=== PATIENT | female | born 1955 | race Two or more races ===

== ENCOUNTER 2021-04-27 12:20 | Outpatient (CLI) | payer OTHER | END 2021-04-27 12:25 | disposition home or self-care (01) | LOC: SONOGRAMA 12:20 | PROVIDERS: ATTEND Internal Medicine Cardiovascular Disease | DX: M25.511 Pain in right shoulder (principal) ==

== ENCOUNTER 2021-06-21 15:18 | Emergency (ER) | payer OTHER ==
[~2021-06-21] VITALS: Ht 154.9 cm; Wt 68.0 kg
[2021-06-21] MEDS ORDERED: GLUMETZA1000 MG (15:29)
== END 2021-06-21 21:29 | disposition home or self-care (01) ==
LOC: ER 15:18
DX: R10.31 Right lower quadrant pain (principal)

== ENCOUNTER 2022-04-26 08:17 | Emergency (ER) | payer OTHER ==
[~2022-04-26] VITALS: Ht 152.4 cm; Wt 66.7 kg
[~2022-04-26 08:17] MED LIST: GLUMETZA1000 MG
== END 2022-04-26 10:44 | disposition home or self-care (01) ==
LOC: ER 08:17
DX: B02.9 Zoster without complications (principal); E11.9 Type 2 diabetes mellitus without complications; Z79.84 Long term (current) use of oral hypoglycemic drugs; Z88.6 Allergy status to analgesic agent

== ENCOUNTER → 2022-10-03 | Outpatient (CLI) | payer OTHER | END | disposition home or self-care (01) | LOC: MAMO-SONO 08:24 | PROVIDERS: ATTEND Internal Medicine Cardiovascular Disease | DX: N63.11 Unspecified lump in the right breast, upper outer quadrant (principal) ==

== ENCOUNTER → 2022-10-10 | Outpatient (CLI) | payer OTHER | END | disposition home or self-care (01) | LOC: NUCLEAR 11:54 | PROVIDERS: ATTEND Internal Medicine Cardiovascular Disease | DX: M81.0 Age-related osteoporosis without current pathological fracture (principal); E55.9 Vitamin D deficiency, unspecified ==

== ENCOUNTER 2023-03-06 09:20 | Outpatient (CLI) | payer OTHER | END 2023-03-06 09:23 | disposition home or self-care (01) | LOC: RAD 09:20 | PROVIDERS: ATTEND Internal Medicine Cardiovascular Disease | DX: M46.48 Discitis, unspecified, sacral and sacrococcygeal region (principal) ==

== ENCOUNTER 2023-03-09 09:33 | Outpatient (CLI) | payer OTHER | END 2023-03-09 09:44 | disposition home or self-care (01) | LOC: SONOGRAMA 09:33 | PROVIDERS: ATTEND Internal Medicine Cardiovascular Disease | DX: R10.9 Unspecified abdominal pain (principal); K72.00 Acute and subacute hepatic failure without coma ==

== ENCOUNTER 2023-03-26 09:31 | Emergency (ER) | payer OTHER ==
[~2023-03-26] VITALS: Ht 152.4 cm; Wt 66.2 kg
[2023-03-26] MEDS ORDERED: JENTADUETO 2.51 EACH PO (10:09)
== END 2023-03-26 12:05 | disposition home or self-care (01) ==
LOC: ER 09:31
DX: M77.8 Other enthesopathies, not elsewhere classified (principal); Z88.6 Allergy status to analgesic agent

== ENCOUNTER 2023-08-27 07:56 | Emergency (ER) | payer OTHER ==
[~2023-08-27] VITALS: Ht 152.4 cm; Wt 63.5 kg
[~2023-08-27 07:56] MED LIST changes: +JENTADUETO 2.51 EACH PO
== END 2023-08-27 08:36 | disposition home or self-care (01) ==
LOC: ER 07:56
DX: K42.9 Umbilical hernia without obstruction or gangrene (principal); E11.9 Type 2 diabetes mellitus without complications; Z79.84 Long term (current) use of oral hypoglycemic drugs; Z88.6 Allergy status to analgesic agent

== ENCOUNTER 2023-11-08 06:30 | Day surgery (SDC) | payer OTHER ==
[2023-11-01 08:36] LABS: HEMATOCRIT 43.3 % (36.0-45.00); HEMOGLOBIN 14.7 g/dL (12.0-15.00); MEAN CELL VOLUME 88.1 fL (80.00-100.00); MEAN CORPUSCULAR HEMOGLOBIN 29.9 pg (27.00-32.0); MEAN CORPUSCULAR HGB CONC 33.9 g/dl (32.0-36.0); PLATELET COUNT 223 K/uL (150-450); RED BLOOD COUNT 4.91 M/uL (4.00-6.00)
[2023-11-01 08:54] LABS: INR 0.98; PARTIAL THROMBOPLASTIN TIME 27.1 SECONDS (22.0-34.0); PROTHROMBIN TIME 10.3 SECONDS (9.0-11.5)
[2023-11-01 09:02] LABS: CALCIUM 9.1 mg/dL (8.5-10.1); CREATININE SERUM 0.6 mg/dL (0.55-1.02); GFR 100.02
[2023-11-01 10:38] LABS: URINE APPEARANCE Clear; URINE BILIRRUBIN Negative (NEGATIVE); URINE BLOOD Negative; URINE COLOR Yellow; URINE GLUCOSE Negative (NEGATIVE); URINE LEUKOCYTE Small; URINE NITRATE Negative; URINE PROTEIN Negative (NEGATIVE); URINE UROBILINOGEN 0.2 E.U./dl
[2023-11-01 10:43] LABS: URINE BACTERIA 114.6 uL (0.0-1933); URINE EPITHELIAL CELLS 20.2 uL (0.0-38.8); URINE WBC 11.4 uL (0.0-23.2)
[2023-11-01 10:45] LABS: URINE RBC 1.2 uL (0.0-20.8)
[2023-11-08] MEDS ORDERED: NEURONTIN300 MG PO (09:36)
[2023-11-08] MEDS ORDERED: TRAMADOL HCL50 MG PO (09:36)
[2023-11-08] MEDS ORDERED: TYLENOL ARTHRI650 MG PO (09:36)
[2023-11-08] MEDS ORDERED: MIRALAX17 GM PO (09:36)
== END 2023-11-08 14:45 | disposition home or self-care (01) ==
LOC: CIR.AMB 06:30
PROVIDERS: ATTEND Surgery
DX: K42.0 Umbilical hernia with obstruction, without gangrene (principal); I10 Essential (primary) hypertension; Z88.0 Allergy status to penicillin; Z20.822 Contact with and (suspected) exposure to COVID-19

== ENCOUNTER 2024-01-10 07:04 | Outpatient (CLI) | payer OTHER ==
[~2024-01-10 07:04] MED LIST changes: +MIRALAX17 GM PO; +NEURONTIN300 MG PO; +TRAMADOL HCL50 MG PO; +TYLENOL ARTHRI650 MG PO
== END 2024-01-10 07:09 | disposition home or self-care (01) ==
LOC: SONOGRAMA 07:04
PROVIDERS: ATTEND Internal Medicine Cardiovascular Disease
DX: R10.9 Unspecified abdominal pain (principal)

== ENCOUNTER 2024-01-31 18:15 | Emergency (ER) | payer OTHER ==
[~2024-01-31] VITALS: Ht 152.4 cm; Wt 64.4 kg
[2024-01-31 20:19] LABS: HEMATOCRIT 40.1 % (36.0-45.00); HEMOGLOBIN 13.5 g/dL (12.0-15.00); MEAN CELL VOLUME 86.9 fL (80.00-100.00); MEAN CORPUSCULAR HEMOGLOBIN 29.4 pg (27.00-32.0); MEAN CORPUSCULAR HGB CONC 33.8 g/dl (32.0-36.0); PLATELET COUNT 218 K/uL (150-450); RED BLOOD COUNT 4.61 M/uL (4.00-6.00); RED CELL DISTRIBUTION WIDTH 12.9 % (11.5-14.5)
[2024-01-31 20:38] LABS: CALCIUM 9.2 mg/dL (8.5-10.1); CREATININE SERUM 0.67 mg/dL (0.55-1.02); GFR 88.06; POTASSIUM 3.73 mEq/L (3.5-5.1)
[2024-01-31 20:45] LABS: URINE APPEARANCE Turbid; URINE BILIRRUBIN Small (NEGATIVE); URINE BLOOD Moderate; URINE COLOR Red; URINE GLUCOSE Negative (NEGATIVE); URINE LEUKOCYTE Moderate; URINE NITRATE Negative
[2024-01-31 20:48] LABS: URINE BACTERIA 127.2 uL (0.0-1933); URINE RBC 7185.1 uL (0.0-20.8); URINE WBC 76.9 uL (0.0-23.2)
[2024-01-31 21:25] LABS: URINE PROTEIN 100 (NEGATIVE); URINE YEAST MANY /hpf
[2024-01-31] MEDS ORDERED: CEFTRIAXONE SODIUM 1,000 MG VIAL IM STA (22:56)
== END 2024-01-31 23:11 | disposition home or self-care (01) ==
LOC: ER 18:15
PROVIDERS: General Practice
DX: N39.0 Urinary tract infection, site not specified (principal); R31.9 Hematuria, unspecified; Z88.6 Allergy status to analgesic agent
CPT/HCPCS: 36415; 74176; 96372; 99284; J0696